=== PATIENT | male | born 1965 | race Caucasian/White ===

== ENCOUNTER 2016-08-19 13:13 | Inpatient (IN) | payer OTHER ==
[~2016-08-19] VITALS: Ht 165.1 cm; Wt 103.8 kg
[2016-08-19] MEDS ORDERED: ASPI-556 PO (13:23)
[2016-08-19] MEDS ORDERED: GABA-529 PO (13:23)
[2016-08-19] MEDS ORDERED: SITA25 PO (13:23)
[2016-08-19] MEDS ORDERED: INSLAN SQ (13:23)
[2016-08-19] MEDS ORDERED: METF500T4 PO (13:23)
[2016-08-19] MEDS ORDERED: CARV3 PO (13:23)
[2016-08-19] MEDS ORDERED: ATEN25 PO (13:23)
[2016-08-19] MEDS ORDERED: ATOR10TA84 PO (13:23)
[2016-08-19 13:26] LABS: GLUCOSE,POINT OF CARE 118 MG/DL (70-110)
[2016-08-19] MEDS ORDERED: ASPIRIN 81 MG CHEWABLE TABLET PO ONE (13:45)
[2016-08-19] MEDS ORDERED: NITROGLYCERIN 0.4 MG SUBLINGUAL TABLET #25 SL ONE (13:45)
[2016-08-19 13:50] LABS: BASOPHILS % (AUTO) 0.5 % (0.0-2.0); EOSINOPHILS % (AUTO) 0.8 % (1.0-6.0); HEMATOCRIT 39.7 % (41-53); HEMOGLOBIN 12.5 g/dL (13.5-17.5); LYMPHOCYTES # (AUTO) 2.6 K/uL (1.0-4.8); LYMPHOCYTES % (AUTO) 28.5 % (22.0-44.0); MEAN CORPUSCULAR HEMOGLOBIN 27.4 pg (26.0-34.0); MEAN CORPUSCULAR HGB CONC 31.4 G/dL (31.0-37.0); MEAN CORPUSCULAR VOLUME 87 fL (80-100); MONOCYTES # (AUTO) 0.7 K/uL (0.1-1.0); MONOCYTES % (AUTO) 7.8 % (2.0-9.0); NEUTROPHILS # (AUTO) 5.7 K/uL (1.8-7.7); NEUTROPHILS % (AUTO) 62.4 % (40.0-70.0); PLATELET COUNT (AUTO) 251 K/uL (150-450); RED BLOOD CELL COUNT(AUTO) 4.55 MIL/uL (4.50-5.90); RED CELL DISTRIBUTION WIDTH 15.6 % (11.5-14.5); WHITE BLOOD COUNT (AUTO) 9.2 K/uL (4.5-11.0)
[2016-08-19 13:58] LABS: ANION GAP 8 mmol/L (8-16); CARBON DIOXIDE 28 mmol/L (22-29); CHLORIDE 106 mmol/L (98-107); CREATININE 0.96 mg/dL (0.60-1.30); GLOMERULAR FILTR. RATE CALC > 60 mL/min (>60); POTASSIUM 3.9 mmol/L (3.5-5.1); SODIUM SERUM 142 mmol/L (136-145); UREA NITROGEN, BLOOD 20 mg/dL (7-18)
[2016-08-19] MEDS ORDERED: NITROGLYCERIN 2% (1 GM=INCH) PACKET TP ONE (14:00)
[2016-08-19 14:01] LABS: INR 0.9 (0.9-1.1)
[2016-08-19 14:11] LABS: B-TYPE NATRIURETIC PEPTIDE 171 pg/mL (0-100)
[2016-08-19 14:23] LABS: ALANINE AMINOTRANSFERASE 30 U/L (12-78); ALBUMIN 3.3 g/dL (3.4-5.0); ASPARTATE AMINOTRANSFERASE 22 U/L (15-37); BILIRUBIN,TOTAL 0.4 mg/dL (0.1-1.0); CREATINE KINASE MB 3.6 ng/mL (0-5); CREATINE KINASE, TOTAL 292 U/L (39-308); TOTAL PROTEIN, SERUM 7.9 g/dL (6.4-8.2)
[2016-08-19] MEDS ORDERED: CLOPIDOGREL BISULFATE 75 MG TABLET PO ONE (14:30)
[2016-08-19] MEDS ORDERED: LORazepam 1 MG TABLET PO ONE (14:30)
[2016-08-19] MEDS ORDERED: ATORVASTATIN CALCIUM 40 MG TABLET PO ONE (14:30)
[2016-08-19] MEDS ORDERED: 0.9% SODIUM CHLORIDE 10 ML SYRINGE IVP PRN (14:45)
[2016-08-19] MEDS ORDERED: MORPHINE SULFATE 4 MG/ML SYRINGE IVP PRN (14:45)
[2016-08-19] MEDS ORDERED: ONDANSETRON HCL 4 MG/2 ML VIAL IVP PRN ×2 (14:45→15:15)
[2016-08-19] MEDS ORDERED: DEXTROSE 50%-WATER 25 GM/50 ML SYRINGE IVP PRN ×2 (14:45→15:15)
[2016-08-19] MEDS ORDERED: HYDROCODONE/ACETAMINOPHEN 5-325 MG TABLET PO PRN ×2 (14:45→15:15)
[2016-08-19] MEDS ORDERED: ACETAMINOPHEN 325 MG TABLET PO PRN ×2 (14:45→15:15)
[2016-08-19] MEDS ORDERED: INSULIN ASPART 100 UNITS/ML SQ PRN (14:45)
[2016-08-19] MEDS ORDERED: BISACODYL 10 MG RECTAL RECTAL SUPPOSITORY PR PRN (15:15)
[2016-08-19] MEDS ORDERED: MORPHINE SULFATE 2 MG/ML SYRINGE IVP PRN (15:15)
[2016-08-19] MEDS ORDERED: ZOLPIDEM TARTRATE 5 MG TABLET PO PRN (15:15)
[2016-08-19] MEDS ORDERED: MAGNESIUM HYDROXIDE SUSPENSION 30 ML UDCUP PO PRN (15:15)
[2016-08-19] MEDS: NITROGLYCERIN 2% (1 GM=INCH) PACKET TP SCH ×2 (15:21→23:45)
[2016-08-19] MEDS: HEPARIN SODIUM,PORCINE 5,000 UNITS/ML VIAL SQ SCH ×2 (15:22→23:45)
[2016-08-19 16:02] VITALS: BP 130/84
[2016-08-19 19:24] VITALS: BP 149/80
[2016-08-19] MEDS: GABAPENTIN 300 MG CAPSULE PO SCH (20:45)
[2016-08-19] MEDS: DOCUSATE SODIUM 100 MG CAPSULE PO SCH (20:45)
[2016-08-19] MEDS: INSULIN ASPART 100 UNITS/ML SQ PRN (20:49)
[2016-08-19 23:43] VITALS: BP 116/70
[2016-08-20 04:24] VITALS: BP 132/79
[2016-08-20] MEDS: INSULIN ASPART 100 UNITS/ML SQ PRN (06:32)
[2016-08-20 07:13] LABS: BASOPHILS # (AUTO) 0.03 K/uL (0.00-0.20); BASOPHILS % (AUTO) 0.5 % (0.0-2.0); EOSINOPHILS # (AUTO) 0.09 K/uL (0.00-0.70); EOSINOPHILS % (AUTO) 1.23 % (1.0-6.0); HEMOGLOBIN 11.5 g/dL (13.5-17.5); LYMPHOCYTES # (AUTO) 1.9 K/uL (1.0-4.8); LYMPHOCYTES % (AUTO) 26.4 % (22.0-44.0); MEAN CORPUSCULAR VOLUME 88 fL (80-100); MONOCYTES # (AUTO) 0.5 K/uL (0.1-1.0); MONOCYTES % (AUTO) 7.3 % (2.0-9.0); NEUTROPHILS # (AUTO) 4.6 K/uL (1.8-7.7); NEUTROPHILS % (AUTO) 64.6 % (40.0-70.0); PLATELET COUNT (AUTO) 234 K/uL (150-450); RED BLOOD CELL COUNT(AUTO) 4.11 MIL/uL (4.50-5.90); RED CELL DISTRIBUTION WIDTH 15.6 % (11.5-14.5); WHITE BLOOD COUNT (AUTO) 7.2 K/uL (4.5-11.0)
[2016-08-20 07:31] VITALS: BP 169/88
[2016-08-20 07:34] LABS: ALANINE AMINOTRANSFERASE 24 U/L (12-78); ALBUMIN 2.8 g/dL (3.4-5.0); ANION GAP 6 mmol/L (8-16); ASPARTATE AMINOTRANSFERASE 16 U/L (15-37); BILIRUBIN,TOTAL 0.4 mg/dL (0.1-1.0); CALCIUM, TOTAL 8.7 mg/dL (8.8-10.5); CARBON DIOXIDE 30 mmol/L (22-29); CHLORIDE 106 mmol/L (98-107); CHOL/HDL RATIO 2.8 (4.2-7.3); CREATININE 0.97 mg/dL (0.60-1.30); GLOMERULAR FILTR. RATE CALC > 60 mL/min (>60); POTASSIUM 4.5 mmol/L (3.5-5.1); SODIUM SERUM 142 mmol/L (136-145); UREA NITROGEN, BLOOD 18 mg/dL (7-18)
[2016-08-20] MEDS ORDERED: ALPRAZolam 0.25 MG TABLET PO PRN (07:45)
[2016-08-20] MEDS: MetFORMIN HCL 500 MG TABLET PO SCH ×2 (07:57→17:10)
[2016-08-20] MEDS: DOCUSATE SODIUM 100 MG CAPSULE PO SCH ×2 (07:58→20:05)
[2016-08-20] MEDS: NITROGLYCERIN 2% (1 GM=INCH) PACKET TP SCH ×3 (07:58→23:42)
[2016-08-20] MEDS: HEPARIN SODIUM,PORCINE 5,000 UNITS/ML VIAL SQ SCH ×3 (07:58→23:43)
[2016-08-20] MEDS: ASPIRIN 81 MG CHEWABLE TABLET PO SCH (07:58)
[2016-08-20] MEDS: GABAPENTIN 300 MG CAPSULE PO SCH ×2 (07:59→20:05)
[2016-08-20] MEDS: SitaGLIPtin PHOSPHATE 100 MG TABLET PO SCH (07:59)
[2016-08-20] MEDS: AmLODIPine BESYLATE 5 MG TABLET PO SCH (07:59)
[2016-08-20] MEDS: CLOPIDOGREL BISULFATE 75 MG TABLET PO SCH (07:59)
[2016-08-20] MEDS: PANTOPRAZOLE SODIUM 40 MG DR TABLET PO SCH (07:59)
[2016-08-20] MEDS: CHOLECALCIFEROL (VIT D3) 2,000 UNITS TABLET PO SCH (07:59)
[2016-08-20] MEDS: ATORVASTATIN CALCIUM 40 MG TABLET PO SCH (08:00)
[2016-08-20] MEDS ORDERED: SitaGLIPtin PHOSPHATE 25 MG TABLET PO SCH (09:00)
[2016-08-20] MEDS ORDERED: ASPIRIN 81 MG EC TABLET PO SCH (09:00)
[2016-08-20] MEDS ORDERED: ATORVASTATIN CALCIUM 10 MG TABLET PO SCH (09:00)
[2016-08-20] MEDS ORDERED: ATENOLOL 25 MG TABLET PO SCH (09:00)
[2016-08-20] MEDS ORDERED: CARVEDILOL 3.125 MG TABLET PO SCH (09:00)
[2016-08-20 10:27] LABS: GLUCOSE,POINT OF CARE 123 MG/DL (70-110)
[2016-08-20 10:32] LABS: GLUCOSE,POINT OF CARE 131 MG/DL (70-110)
[2016-08-20] MEDS ORDERED: MAGNESIUM SULFATE 4 GM/WATER 100 ML IV PRN (11:15)
[2016-08-20] MEDS ORDERED: MAGNESIUM SULFATE 2 GM in DEXTROSE 5%-WATER 50 ML IV PRN (11:15)
[2016-08-20 12:05] VITALS: BP 150/88
[2016-08-20] MEDS: ATENOLOL 25 MG TABLET PO SCH (13:23)
[2016-08-20] MEDS: MAGNESIUM OXIDE 400 MG TABLET PO PRN ×3 (13:23→21:25)
[2016-08-20 15:13] VITALS: BP 117/69
[2016-08-20 19:28] VITALS: BP 154/89
[2016-08-20 23:39] VITALS: BP 133/75
[2016-08-21 04:41] VITALS: BP 116/70
[2016-08-21 06:25] LABS: ANION GAP 5 mmol/L (8-16); CALCIUM, TOTAL 8.7 mg/dL (8.8-10.5); CARBON DIOXIDE 29 mmol/L (22-29); CHLORIDE 105 mmol/L (98-107); CREATININE 1.03 mg/dL (0.60-1.30); GLOMERULAR FILTR. RATE CALC > 60 mL/min (>60); POTASSIUM 4.2 mmol/L (3.5-5.1); SODIUM SERUM 139 mmol/L (136-145); UREA NITROGEN, BLOOD 19 mg/dL (7-18)
[2016-08-21 07:01] LABS: BASOPHILS % (AUTO) 0.5 % (0.0-2.0); EOSINOPHILS % (AUTO) 1.5 % (1.0-6.0); HEMATOCRIT 36.1 % (41-53); HEMOGLOBIN 11.5 g/dL (13.5-17.5); LYMPHOCYTES # (AUTO) 2.1 K/uL (1.0-4.8); LYMPHOCYTES % (AUTO) 27.6 % (22.0-44.0); MEAN CORPUSCULAR HEMOGLOBIN 27.8 pg (26.0-34.0); MEAN CORPUSCULAR HGB CONC 31.9 G/dL (31.0-37.0); MEAN CORPUSCULAR VOLUME 87 fL (80-100); MONOCYTES # (AUTO) 0.5 K/uL (0.1-1.0); MONOCYTES % (AUTO) 6.8 % (2.0-9.0); NEUTROPHILS # (AUTO) 4.8 K/uL (1.8-7.7); NEUTROPHILS % (AUTO) 63.6 % (40.0-70.0); PLATELET COUNT (AUTO) 235 K/uL (150-450); RED BLOOD CELL COUNT(AUTO) 4.15 MIL/uL (4.50-5.90); RED CELL DISTRIBUTION WIDTH 15.8 % (11.5-14.5); WHITE BLOOD COUNT (AUTO) 7.6 K/uL (4.5-11.0)
[2016-08-21 07:17] VITALS: BP 138/77
[2016-08-21] MEDS: CHOLECALCIFEROL (VIT D3) 2,000 UNITS TABLET PO SCH (08:33)
[2016-08-21] MEDS: AmLODIPine BESYLATE 5 MG TABLET PO SCH (08:33)
[2016-08-21] MEDS: GABAPENTIN 300 MG CAPSULE PO SCH (08:33)
[2016-08-21] MEDS: HEPARIN SODIUM,PORCINE 5,000 UNITS/ML VIAL SQ SCH ×2 (08:33→16:42)
[2016-08-21] MEDS: MetFORMIN HCL 500 MG TABLET PO SCH ×2 (08:33→16:42)
[2016-08-21] MEDS: ASPIRIN 81 MG CHEWABLE TABLET PO SCH (08:34)
[2016-08-21] MEDS: CLOPIDOGREL BISULFATE 75 MG TABLET PO SCH (08:34)
[2016-08-21] MEDS: NITROGLYCERIN 2% (1 GM=INCH) PACKET TP SCH ×2 (08:34→16:29)
[2016-08-21] MEDS: ATORVASTATIN CALCIUM 40 MG TABLET PO SCH (08:35)
[2016-08-21] MEDS: PANTOPRAZOLE SODIUM 40 MG DR TABLET PO SCH (08:35)
[2016-08-21] MEDS: SitaGLIPtin PHOSPHATE 100 MG TABLET PO SCH (08:36)
[2016-08-21] MEDS: ATENOLOL 25 MG TABLET PO SCH (08:36)
[2016-08-21] MEDS: DOCUSATE SODIUM 100 MG CAPSULE PO SCH (08:37)
[2016-08-21 11:39] VITALS: BP 133/77
[2016-08-21] MEDS: MAGNESIUM OXIDE 400 MG TABLET PO PRN (14:08)
[2016-08-21 15:35] VITALS: BP 109/66
[2016-08-21] MEDS ORDERED: CLOP75 PO (16:56)
[2016-08-21] MEDS ORDERED: MAGOX PF (16:59)
[2016-08-21] MEDS ORDERED: LORA1TAB3 PO (17:00)
[2016-08-21] MEDS ORDERED: ASPI81 PO (17:01)
[2016-08-21] MEDS ORDERED: ATEN50TA PO (17:02)
[2016-08-21] MEDS ORDERED: AMLO-511 PO (17:03)
[2016-08-21] MEDS ORDERED: VITAD1000 PO ×2 (17:03→17:15)
[2016-08-21] MEDS ORDERED: ATOR40TA28 PO (17:14)
[2016-08-21] MEDS ORDERED: GABA-531 PO (17:17)
[2016-08-21 19:27] LABS: GLUCOSE,POINT OF CARE 108 MG/DL (70-110)
[2016-08-22 09:27] LABS: GLUCOSE,POINT OF CARE 117 MG/DL (70-110)
[2016-08-22 13:02] LABS: GLUCOSE COMMENT 1 Received Meds; GLUCOSE,POINT OF CARE 147 MG/DL (70-110)
[2016-08-25 17:17] LABS: GLUCOSE,POINT OF CARE 120 MG/DL (70-110)
== END 2016-08-21 18:25 | disposition home or self-care (01) | DRG 199 ==
LOC: EEVIPCON 13:15 → EMS 13:15 → 5S 15:00
PROVIDERS: ADMIT Internal Medicine; ATTEND Internal Medicine
DX: I16.0 Hypertensive urgency (principal); E83.42 Hypomagnesemia; E78.5 Hyperlipidemia, unspecified; F43.21 Adjustment disorder with depressed mood; I25.110 Atherosclerotic heart disease of native coronary artery with unstable angina pectoris; I25.9 Chronic ischemic heart disease, unspecified; E11.319 Type 2 diabetes mellitus with unspecified diabetic retinopathy without macular edema; Z79.84 Long term (current) use of oral hypoglycemic drugs; Z95.5 Presence of coronary angioplasty implant and graft; Z79.82 Long term (current) use of aspirin; Z79.899 Other long term (current) drug therapy; Z79.4 Long term (current) use of insulin; I25.2 Old myocardial infarction; Z95.1 Presence of aortocoronary bypass graft
CPT/HCPCS: 82962; 83735; 87081; 93005; 93306; 99291; J1644

== ENCOUNTER 2016-09-17 20:20 | Inpatient (IN) | payer OTHER ==
[~2016-09-17] VITALS: Ht 172.7 cm; Wt 100.7 kg
[~2016-09-17 20:20] MED LIST: AMLO-511 PO; ASPI81 PO; ATEN50TA PO; ATOR40TA28 PO; CLOP75 PO; GABA-529 PO; INSLAN SQ; LORA1TAB3 PO; MAGOX PF; METF500T4 PO; SITA25 PO; VITAD1000 PO
[2016-09-17 20:33] LABS: GLUCOSE,POINT OF CARE 141 MG/DL (70-110)
[2016-09-17] MEDS ORDERED: LORazepam 2 MG/ML VIAL IVP ONE (21:00)
[2016-09-17] MEDS ORDERED: NITROGLYCERIN 2% (1 GM=INCH) PACKET TP ONE (21:00)
[2016-09-17 21:05] LABS: BASOPHILS # (AUTO) 0.05 K/uL (0.00-0.20); BASOPHILS % (AUTO) 0.6 % (0.0-2.0); EOSINOPHILS # (AUTO) 0.11 K/uL (0.00-0.70); EOSINOPHILS % (AUTO) 1.33 % (1.0-6.0); HEMOGLOBIN 11.8 g/dL (13.5-17.5); LYMPHOCYTES # (AUTO) 2.2 K/uL (1.0-4.8); LYMPHOCYTES % (AUTO) 26.2 % (22.0-44.0); MEAN CORPUSCULAR HEMOGLOBIN 28.6 pg (26.0-34.0); MEAN CORPUSCULAR HGB CONC 32.7 G/dL (31.0-37.0); MEAN CORPUSCULAR VOLUME 88 fL (80-100); MONOCYTES # (AUTO) 0.7 K/uL (0.1-1.0); MONOCYTES % (AUTO) 8.6 % (2.0-9.0); NEUTROPHILS # (AUTO) 5.4 K/uL (1.8-7.7); NEUTROPHILS % (AUTO) 63.3 % (40.0-70.0); PLATELET COUNT (AUTO) 220 K/uL (150-450); RED BLOOD CELL COUNT(AUTO) 4.11 MIL/uL (4.50-5.90); RED CELL DISTRIBUTION WIDTH 16.1 % (11.5-14.5); WHITE BLOOD COUNT (AUTO) 8.5 K/uL (4.5-11.0)
[2016-09-17 21:15] LABS: ANION GAP 5 mmol/L (8-16); CALCIUM, TOTAL 8.8 mg/dL (8.8-10.5); CARBON DIOXIDE 30 mmol/L (22-29); CHLORIDE 103 mmol/L (98-107); CREATININE 1.05 mg/dL (0.60-1.30); GLOMERULAR FILTR. RATE CALC > 60 mL/min (>60); POTASSIUM 4.2 mmol/L (3.5-5.1); SODIUM SERUM 138 mmol/L (136-145); UREA NITROGEN, BLOOD 25 mg/dL (7-18)
[2016-09-17 21:21] LABS: ALANINE AMINOTRANSFERASE 29 U/L (12-78); ALBUMIN 3.3 g/dL (3.4-5.0); ASPARTATE AMINOTRANSFERASE 18 U/L (15-37); BILIRUBIN,TOTAL 0.3 mg/dL (0.1-1.0); TOTAL PROTEIN, SERUM 7.4 g/dL (6.4-8.2)
[2016-09-17 21:34] LABS: PROTHROMBIN TIME 10.1 SEC (9.4-11.6)
[2016-09-17 21:57] LABS: B-TYPE NATRIURETIC PEPTIDE 156 pg/mL (0-100)
[2016-09-17] MEDS ORDERED: ACETAMINOPHEN 325 MG TABLET PO PRN ×2 (22:00→22:15)
[2016-09-17] MEDS ORDERED: 0.9% SODIUM CHLORIDE 10 ML SYRINGE IVP PRN (22:00)
[2016-09-17] MEDS ORDERED: ONDANSETRON HCL 4 MG/2 ML VIAL IVP PRN (22:00)
[2016-09-17] MEDS ORDERED: INSULIN ASPART 100 UNITS/ML SQ PRN (22:15)
[2016-09-17] MEDS ORDERED: MAGNESIUM HYDROXIDE SUSPENSION 30 ML UDCUP PO PRN (22:15)
[2016-09-17] MEDS ORDERED: MORPHINE SULFATE 4 MG/ML SYRINGE IVP PRN (22:15)
[2016-09-17] MEDS ORDERED: OxyCODONE HCL/ACETAMINOPHEN 5-325 MG TABLET PO PRN (22:15)
[2016-09-17] MEDS ORDERED: DEXTROSE 50%-WATER 25 GM/50 ML SYRINGE IVP PRN (22:15)
[2016-09-17] MEDS ORDERED: ALBUTEROL SULFATE 2.5 MG/0.5 ML NEB SOLUTION NEB PRN (22:15)
[2016-09-17 22:59] VITALS: BP 135/75
[2016-09-18] MEDS: HEPARIN SODIUM,PORCINE 5,000 UNITS/ML VIAL SQ SCH ×2 (00:47→08:00)
[2016-09-18 05:31] VITALS: BP 136/74
[2016-09-18 07:11] VITALS: BP 132/71
[2016-09-18] MEDS ORDERED: PANTOPRAZOLE SODIUM 40 MG DR TABLET PO SCH (09:00)
[2016-09-18] MEDS ORDERED: CLOPIDOGREL BISULFATE 75 MG TABLET PO SCH (09:00)
[2016-09-18] MEDS ORDERED: ATENOLOL 25 MG TABLET PO SCH (09:00)
[2016-09-18] MEDS ORDERED: DOCUSATE SODIUM 100 MG CAPSULE PO SCH (09:00)
[2016-09-18] MEDS ORDERED: LISINOPRIL 5 MG TABLET PO SCH (09:00)
[2016-09-18] MEDS ORDERED: ASPIRIN 81 MG CHEWABLE TABLET PO SCH (09:00)
[2016-09-18 11:32] LABS: GLUCOSE,POINT OF CARE 131 MG/DL (70-110)
[2016-09-18] MEDS ORDERED: ATORVASTATIN CALCIUM 40 MG TABLET PO SCH (21:00)
[2016-09-18 21:37] LABS: APPEARANCE,URINE CLEAR (CLEAR); GLUCOSE, URINE (UA) 100 mg/dL (NEGATIVE); KETONES,URINE NEGATIVE (NEGATIVE); LEUKOCYTE ESTERASE ,URINE NEGATIVE (NEGATIVE); OCCULT BLOOD,URINE NEGATIVE (NEGATIVE); PROTEIN,URINE SEE CONFIRM (NEGATIVE)
[2016-09-18 21:38] LABS: ADD UA MICROSCOPIC YES
[2016-09-18 21:39] LABS: SULFOSALICYLIC ACID,URINE 2+ (Negative)
[2016-09-18 21:40] LABS: RBC,URINE 0-2 /HPF (0-2); SQUAMOUS EPITHELIAL CELL,UR Rare /LPF (None Seen); WBC,URINE 0-2 /HPF (0-5)
== END 2016-09-18 09:15 | disposition home or self-care (01) | DRG 756 ==
LOC: EMS 20:24 → 5N 21:31
PROVIDERS: ADMIT Internal Medicine; ATTEND Internal Medicine
DX: F41.1 Generalized anxiety disorder (principal); E11.40 Type 2 diabetes mellitus with diabetic neuropathy, unspecified; I25.10 Atherosclerotic heart disease of native coronary artery without angina pectoris; E66.9 Obesity, unspecified; I10 Essential (primary) hypertension; Z95.5 Presence of coronary angioplasty implant and graft; Z68.33 Body mass index [BMI] 33.0-33.9, adult; I25.2 Old myocardial infarction; Z95.1 Presence of aortocoronary bypass graft; Z82.49 Family history of ischemic heart disease and other diseases of the circulatory system; Z83.3 Family history of diabetes mellitus
CPT/HCPCS: 82962; 87081; 93005; 96374; 99285; J1644; J2060

== ENCOUNTER 2017-01-11 15:02 | Emergency (ER) | payer OTHER ==
[~2017-01-11] VITALS: Ht 165.1 cm; Wt 95.0 kg
[~2017-01-11 15:02] MED LIST changes: -AMLO-511 PO; -ATEN50TA PO; -GABA-529 PO
[2017-01-11] MEDS ORDERED: AMLO2.5T PO (15:20)
[2017-01-11] MEDS ORDERED: GABA-531 PO (15:20)
[2017-01-11] MEDS ORDERED: PANT40TA25 PO (15:20)
[2017-01-11] MEDS ORDERED: LISI-661 PO (15:20)
[2017-01-11] MEDS ORDERED: NITR.4 SL (15:20)
[2017-01-11] MEDS ORDERED: CARV12 PO (15:20)
[2017-01-11] MEDS ORDERED: METF500T4 PO (15:20)
[2017-01-11 15:28] LABS: GLUCOSE,POINT OF CARE 106 MG/DL (70-110)
[2017-01-11 16:13] LABS: BASOPHILS % (AUTO) 0.3 % (0.0-2.0); EOSINOPHILS % (AUTO) 0.9 % (1.0-6.0); HEMATOCRIT 37.7 % (41-53); HEMOGLOBIN 12.7 g/dL (13.5-17.5); LYMPHOCYTES # (AUTO) 1.8 K/uL (1.0-4.8); MEAN CORPUSCULAR HEMOGLOBIN 29.8 pg (26.0-34.0); MEAN CORPUSCULAR HGB CONC 33.8 G/dL (31.0-37.0); MEAN CORPUSCULAR VOLUME 88 fL (80-100); MONOCYTES # (AUTO) 0.7 K/uL (0.1-1.0); MONOCYTES % (AUTO) 8.3 % (2.0-9.0); NEUTROPHILS # (AUTO) 5.9 K/uL (1.8-7.7); NEUTROPHILS % (AUTO) 69.5 % (40.0-70.0); PLATELET COUNT (AUTO) 260 K/uL (150-450); RED BLOOD CELL COUNT(AUTO) 4.27 MIL/uL (4.50-5.90); RED CELL DISTRIBUTION WIDTH 14.8 % (11.5-14.5); WHITE BLOOD COUNT (AUTO) 8.5 K/uL (4.5-11.0)
[2017-01-11] MEDS ORDERED: ONDANSETRON HCL 4 MG/2 ML VIAL IVP ONE (16:15)
[2017-01-11] MEDS ORDERED: SODIUM CHLORIDE 0.9% 1,000 ML IV ONE (16:15)
[2017-01-11 16:23] LABS: ALANINE AMINOTRANSFERASE 29 U/L (12-78); ALBUMIN 3.3 g/dL (3.4-5.0); ANION GAP 6 mmol/L (8-16); ASPARTATE AMINOTRANSFERASE 22 U/L (15-37); BILIRUBIN,TOTAL 0.3 mg/dL (0.1-1.0); CALCIUM, TOTAL 8.6 mg/dL (8.8-10.5); CARBON DIOXIDE 29 mmol/L (22-29); CHLORIDE 106 mmol/L (98-107); CREATININE 1.03 mg/dL (0.60-1.30); GLOMERULAR FILTR. RATE CALC > 60 mL/min (>60); SODIUM SERUM 141 mmol/L (136-145); TOTAL PROTEIN, SERUM 8.1 g/dL (6.4-8.2); UREA NITROGEN, BLOOD 21 mg/dL (7-18)
[2017-01-11 16:33] LABS: B-TYPE NATRIURETIC PEPTIDE 263 pg/mL (0-100)
[2017-01-11 16:44] LABS: GLUCOSE,POINT OF CARE 123 MG/DL (70-110)
[2017-01-11 16:53] LABS: APPEARANCE,URINE CLEAR (CLEAR); GLUCOSE, URINE (UA) NEGATIVE (NEGATIVE); KETONES,URINE NEGATIVE (NEGATIVE); LEUKOCYTE ESTERASE ,URINE NEGATIVE (NEGATIVE); OCCULT BLOOD,URINE SMALL (NEGATIVE); PROTEIN,URINE SEE CONFIRM (NEGATIVE)
[2017-01-11 16:54] LABS: ADD UA MICROSCOPIC YES
[2017-01-11 17:48] LABS: SULFOSALICYLIC ACID,URINE 3+ (Negative)
[2017-01-11 17:50] LABS: SQUAMOUS EPITHELIAL CELL,UR Rare /LPF (None Seen); WBC,URINE 0-2 /HPF (0-5)
[2017-01-11 18:11] VITALS: BP 154/89
[2017-01-11] MEDS ORDERED: PROMETHAZINE HCL 25 MG/ML VIAL IM ONE (18:15)
== END 2017-01-11 18:20 | disposition home or self-care (01) ==
LOC: EMS 15:03
DX: R10.13 Epigastric pain (principal); R11.2 Nausea with vomiting, unspecified; E11.9 Type 2 diabetes mellitus without complications; I10 Essential (primary) hypertension; I25.2 Old myocardial infarction; Z95.1 Presence of aortocoronary bypass graft; Z79.4 Long term (current) use of insulin
CPT/HCPCS: 36415; 74022; 80053; 81001; 82962; 83690; 83880; 84484; 85025; 93005; 96361; 96372; 96374; 99285; J2405; J2550; J7030